=== PATIENT | male | born 1975 | race African-American/Black ===

== ENCOUNTER 2017-02-21 18:07 | Emergency (ER) | payer BC ==
[2017-02-21] MEDS ORDERED: Acetaminophen 500 MG TAB ONE (19:50)
--- NOTE | 2017-02-22 00:18 | CON ---
DATE OF CONSULTATION: 02/21/2017 HISTORY OF PRESENT ILLNESS: Mr. 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 He felt dizzy approximately an hour bef ore the incident. He had a sudden onset of pounding headache that lasted for about 2-3 hours. He p resented to the emergency department and his blood pressure was 161/121. He is a known patient of Kj Siddiqui who has worked him up for a left frontal 8 mm AVM. He has had an angiogram with Dr. Kirill wong on 01/09/2017 that showed no aneurysm. Today, at [facility], a CT scan was done that showed no intracranial abnormality. A CTA was done that showed a left frontal AVM with tortuous vessels. A lumbar puncture was done as a concern because of the history of a severe onset pounding headache a nd all 4 tubes of the lumbar puncture showed clear CSF. He is completely neurologically intact on xa and he was transferred to to be evaluated by Neurosurgery. ALLERGIES: No known drug allergies. CURRENT MEDICATIONS: No recorded medications. PAST MEDICAL HISTORY: Includes possible cerebrovascular accident in 2017, diagnosed with AVM in bra in, left frontal in 11/2016. PAST MEDICAL HISTORY: Includes diabetes, hypertension. PAST SURGICAL HISTORY: Includes right knee surgery. PSYCHIATRIC HISTORY: No known psychiatric history. SOCIAL HISTORY: The patient lives with family. Denies any alcohol or illicit drug use. No smoking history. FAMILY HISTORY: No history. REVIEW OF SYSTEMS: A 10-point review of systems was completed. The patient reports dizziness and h eadache, otherwise review of systems grossly negative, unless otherwise stated in the above HPI. PHYSICAL EXAMINATION: VITAL SIGNS: On admission, blood pressure 138/96, pulse 67, respirations 17, temperature 98. Pain 7, O2 sat 96% on room air. GENERAL: The patient is afebrile. Normal pulses. Pulse rate is normal, appears nontoxic. HEENT: Normocephalic, atraumatic. Hearing intact. Moist mucous membranes. Eyes, pupils are equal and reactive to light. Extraocular muscles are intact. Sclerae is white, nonicteric. RESPIRATORY: The patient has bilateral symmetric chest rise. Appears to be no shortness of breath. CARDIOVASCULAR: The patient has normal S1, S2 heart sounds. Regular rate and rhythm. No distal cy anosis or clubbing. EXTREMITIES: Upper extremity normal range of motion and normal strength bilaterally. Lower extremi ty normal range of motion and normal strength bilaterally. NEUROLOGIC: GCS of 15. Cranial nerves II-XII are grossly intact. Speech is clear. He answers my questions appropriately. There are no focal or sensory deficits. No cerebellar deficits and streng th is 5/5 in all 4 extremities. Sensation is equal and intact in all 4 extremities. Speech is sonya r and appropriate. SKIN: Normal findings, warm and dry skin, normal turgor. ASSESSMENT: Mr. Long is a 42-year-old male who presents to [facility] after being transported by EMS from [facility] [place]. He was found to have a left frontal arteriovenou s malformation of 8 mm and concern for severe onset of headaches. PLAN: I reviewed all of the images of the CT, CTA, MRI and lumbar puncture and all were negative fo r subarachnoid hemorrhage. The left frontal AVM was seen on CT scan and CTA. I talked with Dr. Davin Mckoy's PA-C and also Dr. Bailey who are in agreement to send the patient home and have him follow up next week in the office. If there are any further questions, please feel free to contact Neurosurgery.
== END 2017-02-21 20:53 | disposition home or self-care (01) ==
LOC: ERS 18:07
DX: Q28.2 Arteriovenous malformation of cerebral vessels (principal); E11.9 Type 2 diabetes mellitus without complications; I10 Essential (primary) hypertension
CPT/HCPCS: 99284

== ENCOUNTER 2018-02-03 11:35 | Emergency (ER) | payer BC ==
[2018-02-03] MEDS ORDERED: Acetaminophen 500 MG TAB ONE (12:17)
[2018-02-03] MEDS ORDERED: diphenhydrAMINE 50 MG/ML VIAL ONE ×2 (12:17→13:54)
[2018-02-03] MEDS ORDERED: Promethazine HCl 25 MG/ML VIAL ONE ×2 (12:17→13:54)
[2018-02-03] MEDS ORDERED: methylPREDNISolone Sod Succ/PF 125 MG/2 ML VIAL ONE ×2 (16:37→16:43)
[2018-02-03] MEDS ORDERED: Magnesium Sulfate 2 GM/100 ML BAG ONE (16:37)
--- NOTE | 2018-02-03 18:17 | CT ---
CTA HEAD WITH AND WITHOUT CONTRAST: Date: 02/03/18 COMPARISON: 12/18/16. HISTORY: Headache associated with neck pain and stiffness, as well as blurry vision. TECHNIQUE: Multiple contiguous axial images were obtained in a CTA of the head without and with contrast. 3D sag ittal and coronal MIP reformats were performed. FINDINGS: The brain is normal in morphology and attenuation without focal lesions or confluent areas of infarct ion. There is no evidence of hydrocephalus, intracranial hemorrhage, or extra-axial fluid collection. The calvarium and overlying soft tissues are unremarkable. Visualized paranasal sinuses and mastoid a ir cells are well aerated. The bilateral intracranial internal carotid arteries are normal in caliber and branch into normal frances earing anterior and middle cerebral arteries. There is no evidence of focal stenosis, aneurysmal dila tation, or occlusion in the anterior circulation. Both vertebral arteries form a normal appearing basilar artery. The posterior cerebral arteries and c erebellar arteries are patent. There is no evidence of focal stenosis, occlusion, or aneurysmal dilat ation of the posterior circulation. IMPRESSION: 1. No evidence of acute intracranial abnormality. 2. Unremarkable CTA of the head. POS: CHARLSE
== END 2018-02-03 19:51 | disposition home or self-care (01) ==
LOC: ERS 11:35
DX: R51 Headache (principal); Q27.30 Arteriovenous malformation, site unspecified; I11.0 Hypertensive heart disease with heart failure; I50.9 Heart failure, unspecified; E11.9 Type 2 diabetes mellitus without complications; Z79.82 Long term (current) use of aspirin; Z79.899 Other long term (current) drug therapy; Z79.84 Long term (current) use of oral hypoglycemic drugs; Z86.73 Personal history of transient ischemic attack (TIA), and cerebral infarction without residual deficits
CPT/HCPCS: 70496; 93005; 96365; 96366; 96367; 96375; 96376; J1200; J2550; J2930; J3475

== ENCOUNTER 2019-02-01 20:13 | Observation (INO) | payer BC, SELFPAY ==
[2019-02-01 20:49] LABS: #Basophils 0.1 thou/uL (0.0-0.2); #Eosinphils 0.1 thou/uL (0.0-0.7); #Lymphocytes 3.1 thou/uL (1.20-3.40); #Monocytes 0.7 thou/uL (0.11-0.59); #Neutrophils 4.9 thou/uL (1.40-6.50); %Basophils 0.9 % (0.0-1.0); %Eosinophils 1.2 % (0.0-10.0); %Lymphocytes 34.9 % (21.0-51.0); %Monocytes 7.9 % (0.0-10.0); %Neutrophils 55.1 % (42.0-75.0); Hemoglobin 14.6 g/dL (14.0-18.0); Mean Corpuscular HGB CONC 33.2 g/dL (32.0-36.0); Mean Corpuscular Hemoglobin 30.2 pg (27.0-31.0); Mean Platelet Volume 8.6 fL (7.4-10.4); Platelet Count 201 thou/uL (130-400); Red Blood Cell (RBC) Count 4.83 mill/uL (4.70-6.10)
[2019-02-01 21:13] LABS: ALT (SGPT) 25 U/L (8-55); AST (SGOT) 18 U/L (5-34); Alkaline Phosphatase 101 U/L (40-150); Anion Gap 12 mmol/L (10-20); BUN (Urea Nitrogen) 9 mg/dL (8.9-20.6); Bilirubin, Total 0.8 mg/dL (0.2-1.2); CK (CPK) 331 U/L (30-200); Calc. Creatinine Clearance 0 mL/min (70-130); Calcium 8.9 mg/dL (7.8-10.44); Carbon Dioxide 24 mmol/L (22-29); Chloride 107 mmol/L (98-107); Estimated GFR-MDRD 85; Globulin 2.6 g/dL (2.4-3.5); Glucose 95 mg/dL (70-105); Protein, Total 6.6 g/dL (6.0-8.3); Sodium 139 mmol/L (136-145)
[2019-02-01] MEDS ORDERED: Lorazepam 2 MG/ML VIAL SLOW IVP PRN (21:47)
[2019-02-01] MEDS ORDERED: Ondansetron PF 4 MG/2 ML Vial IVP PRN (21:48)
[2019-02-01] MEDS ORDERED: Ondansetron ODT 4 MG TAB PO PRN (21:48)
[2019-02-01] MEDS ORDERED: Acetaminophen 650 MG Suppository PR PRN (21:48)
[2019-02-01] MEDS ORDERED: Acetaminophen 325 MG TAB PO PRN (21:48)
[2019-02-01 22:36] LABS: Bilirubin Negative (Negative); Blood, Urine Negative (Negative); Clarity Clear (Clear); Glucose, Urine (Dipstick) Normal (Negative); Leukocyte Negative Leu/uL (Negative); Nitrite Negative (Negative); Protein, Urine (Dipstick) Negative (Neg-Trace); Urobilinogen Normal mg/dL (Less than 2)
[2019-02-01 22:44] LABS: Amphetamine Not Detected (NotDetected); Cocaine Metabolite Screen Not Detected (NotDetected); Medtox Reader # READER 4; Methamphetamine Not Detected (NotDetected); Opiate Screen Not Detected (NotDetected); Phencyclidine (PCP) Not Detected (NotDetected); THC/Cannabinoid Screen Not Detected (NotDetected)
[2019-02-01 22:45] LABS: Barbiturates Screen Not Detected (NotDetected); Benzodiazepine Screen Detected (NotDetected); Medtox Control Line Valid? VALID (VALID); Methadone Not Detected (NotDetected); Oxycodone Screen Not Detected (NotDetected); Tricyclic Screen Not Detected (NotDetected)
[2019-02-01] MEDS ORDERED: Sodium Chloride 0.9% 1,000 ML IV SCH (22:58)
[2019-02-01 23:35] VITALS: BP 198/115; TEMP 97.7; BMI 26.9
[2019-02-02] MEDS ORDERED: diphenhydrAMINE 50 MG/ML VIAL ONE (00:38)
[2019-02-02] MEDS ORDERED: diphenhydrAMINE 50 MG/ML VIAL IVP SCH (01:00)
[2019-02-02] MEDS ORDERED: hydrALAZINE 20 MG/ML VIAL SLOW IVP PRN (02:41)
[2019-02-02] MEDS ORDERED: Enoxaparin Sodium 40 MG/0.4 ML SYRINGE SC SCH (09:00)
== END 2019-02-02 03:36 | disposition left against medical advice (07) ==
LOC: ERS 20:13 → 2SE 22:47
PROVIDERS: ADMIT Hospitalist; ATTEND Hospitalist
DX: R56.9 Unspecified convulsions (principal); I10 Essential (primary) hypertension; E11.9 Type 2 diabetes mellitus without complications; Z79.84 Long term (current) use of oral hypoglycemic drugs; Z79.899 Other long term (current) drug therapy
CPT/HCPCS: 36415; 80053; 80306; 81003; 82550; 84146; 85025; G0378; J1200

== ENCOUNTER 2019-02-02 06:18 | Emergency (ER) | payer SELFPAY ==
[2019-02-02 06:46] LABS: #Basophils 0.1 thou/uL (0.0-0.2); #Eosinphils 0.1 thou/uL (0.0-0.7); #Lymphocytes 1.8 thou/uL (1.20-3.40); #Monocytes 0.5 thou/uL (0.11-0.59); #Neutrophils 9.4 thou/uL (1.40-6.50); %Basophils 0.8 % (0.0-1.0); %Lymphocytes 14.9 % (21.0-51.0); %Monocytes 4.5 % (0.0-10.0); %Neutrophils 78.8 % (42.0-75.0); Hemoglobin 15.4 g/dL (14.0-18.0); Mean Corpuscular HGB CONC 33.2 g/dL (32.0-36.0); Mean Corpuscular Hemoglobin 29.7 pg (27.0-31.0); Mean Corpuscular Volume 89.5 fL (78.0-98.0); Mean Platelet Volume 8.6 fL (7.4-10.4); Platelet Count 203 thou/uL (130-400); RBC Distribution Width 13.9 % (11.5-14.5); White Blood Cell (WBC) Count 11.9 thou/uL (4.8-10.8)
[2019-02-02 07:09] LABS: ALT (SGPT) 27 U/L (8-55); AST (SGOT) 21 U/L (5-34); Albumin 4.4 g/dL (3.5-5.0); Alcohol Less than 10 mg/dL (Less than 10); Alkaline Phosphatase 107 U/L (40-150); Anion Gap 12 mmol/L (10-20); BUN (Urea Nitrogen) 9 mg/dL (8.9-20.6); Bilirubin, Total 1.1 mg/dL (0.2-1.2); Calc. Creatinine Clearance 0 mL/min (70-130); Calcium 9.8 mg/dL (7.8-10.44); Carbon Dioxide 27 mmol/L (22-29); Chloride 104 mmol/L (98-107); Estimated GFR-MDRD 78; Globulin 2.9 g/dL (2.4-3.5); Glucose 104 mg/dL (70-105); Potassium 3.7 mmol/L (3.5-5.1); Protein, Total 7.3 g/dL (6.0-8.3); Sodium 139 mmol/L (136-145)
--- NOTE | 2019-02-02 07:50 | CT ---
CT ANGIOGRAM HEAD CT ANGIOGRAM NECK: Date: 02/02/2019 HISTORY: Left-sided aphasia, weakness, history of CVA. TECHNIQUE: Axial CT imaging obtained at 1.25 mm intervals from the vertex through the lung apices with IV contra st using CT angiogram protocol. Coronal and sagittal 3-D reformatted imaging obtained. FINDINGS: The imaged lung apices appear unremarkable. The retroantral fat and parapharyngeal fat appears clear. The parotid and submandibular glands appear grossly unremarkable. Limited assessment of the aerodiges tive tract appears unremarkable. No lymphadenopathy is evident within the neck. The origin of the left subclavian artery, innominate artery, left common carotid artery, right subcla vian artery, right common carotid artery, and bilateral vertebral arteries appears unremarkable. Origin of the left vertebral artery is limited secondary to venous contrast media. Bilateral vertebra l arteries are patent. On the basis of NASCET criteria, there is no hemodynamically significant stenosis involving the commo n carotid artery or the internal carotid artery on either side. The basilar artery and its branches appear patent. There is no saccular aneurysm, high-grade stenosis, or vascular occlusion involving the posterior cir culation. The intracranial arterial structures of the anterior circulation demonstrate no high-grade stenosis, vascular occlusion, or saccular aneurysm. Distal MCA and MARINA branches appear intact. The M1 segment and the MCA bifurcation appear unremarkable bilaterally. There is abnormal hypodensity involving the left frontal lobe with associated mass effect on the mateus cent frontal horn of left lateral ventricle. Configuration on recent CT examination of the head suggests vasogenic edema. There is slight midline shift from left to right in the frontal region. A prior brain MRI performed 03/11/2017 demonstrated arteriovenous malformation of the left frontal lo be. Left frontal AVM was also noted on prior CT angiogram of the head performed 02/03/2018. On this examination, that arteriovenous malformation within the left frontal lobe is again noted but is somew hat more ill-defined when compared to the prior CT examination. Recommend repeat brain MRI. Conventional angiography may be beneficial for full assessment. On this examination, presumed arteriovenous malformation of left frontal lobe is best seen on axial i mage 233 and coronal image 27. It is difficult to measure secondary to its ill-defined nature but is likely in the 5 mm range. IMPRESSION: Findings suggesting significant vasogenic edema with associated mass effect in the left frontal lobe. There is an arteriovenous malformation in this region as detailed above. No acute intracranial hemorrhage is evident. Recommend further assessment via contrast enhanced brain MRI. Results were called to Dr. Kruse at 7:45 AM 02/02/2019 Transcribed Date/Time: 02/02/2019 8:36 AM
--- NOTE | 2019-02-02 08:42 | CT ---
CT OF THE BRAIN WITHOUT CONTRAST: INDICATION: Level I stroke as evaluation for a left-sided aphasia and weakness. COMPARISON: CTA of the brain dated 02/03/2018, MRI of the brain dated 03/11/2017, CTA of the brain dated 12/18/2016 , and noncontrast CT of the brain dated 12/17/2016. FINDINGS: There is an area of subcortical white matter edema in the left frontal lobe surrounding the region of the previously noted arteriovenous malformation. No intracranial hemorrhage or midline shift is dinorah dent. No hydrocephalus is noted. Mastoid air cells and paranasal sinuses are clear. IMPRESSION: 1. New area of vasogenic edema involving the left frontal lobe with maintenance of the cortical ribb on. Overall, the findings are suspicious for edematous changes which could be related to thrombus o f the patient's previous arteriovenous malformation or underlying metastatic disease. Followup CTA o f the head utilizing IV contrast is recommended. MRI of the brain with and without contrast would li stanley be helpful in further evaluation. 2. Findings were called to Dr. Bunch at 6:42 a.m. on 02/02/2019. CODE CR POS: SANDRA
[2019-02-02 09:26] LABS: Bilirubin Negative (Negative); Blood, Urine Negative (Negative); Clarity Clear (Clear); Glucose, Urine (Dipstick) Normal (Negative); Leukocyte Negative Leu/uL (Negative); Nitrite Negative (Negative); Protein, Urine (Dipstick) Negative (Neg-Trace); Urobilinogen Normal mg/dL (Less than 2)
[2019-02-02 09:35] LABS: Medtox Reader # READER 1
[2019-02-02 09:36] LABS: Amphetamine Not Detected (NotDetected); Barbiturates Screen Not Detected (NotDetected); Benzodiazepine Screen Detected (NotDetected); Cocaine Metabolite Screen Not Detected (NotDetected); Medtox Control Line Valid? VALID (VALID); Methadone Not Detected (NotDetected); Methamphetamine Not Detected (NotDetected); Opiate Screen Not Detected (NotDetected); Oxycodone Screen Not Detected (NotDetected); Phencyclidine (PCP) Not Detected (NotDetected); THC/Cannabinoid Screen Not Detected (NotDetected); Tricyclic Screen Not Detected (NotDetected)
--- NOTE | 2019-02-02 10:39 | MRI ---
MRI BRAIN WITH AND WITHOUT CONTRAST: Date: 02/02/19 Reference made to MRI brain dated 03/11/17, as well as head CT dated 02/02/19. FINDINGS: There is abnormal peripherally enhancing intra-axial mass in the left frontal lobe, 1.9 cm transverse x 1.4 cm AP, with surrounding vasogenic edema. This abuts the patient's known vascular malformation, although demonstrates the appearance of pathology separate from vascular anomaly. There is mild susc eptibility artifact at the site of the lesion. Mild rightward midline shift at level of septum pelluc idum measures 3 mm. IMPRESSION: Rim enhancing lesion of the left frontal lobe adjacent to patient's previously diagnosed vascular mal formation. Given the degree of edema, mass effect, and enhancement characteristics, the primary consi deration is interval development of neoplasm. While subacute hematomas can produce rim enhancement, g iven the degree of surrounding vasogenic edema, this does not favor a subacute process, and the patte rn of GRE susceptibility and absence of notable intrinsic hyperintensity does not favor subacute steven jessica. Therefore, recommend neurosurgical consultation for further evaluation in order to exclude intr acranial malignancy. POS: TPC
[2019-02-02] MEDS ORDERED: ISOVUE-370 76%-LOCM 1 ML ONE (10:46)
[2019-02-02] MEDS ORDERED: Gadobenate Dimeglumine 529 MG/1 ML (20ML VIAL) ONE (10:53)
--- NOTE | 2019-02-02 11:30 | PDOC.EVN ---
Event Note - Event Note Event Note: Patient left the ED AMA after MRI done and was not in the ED when this provider went to admit him. Discussed MRI results with Dr. Kruse, ED physician, who is having ED charge nurse try and track patient down to bring back to the ED. Dr. Khan made aware of situation.
--- NOTE | 2019-02-02 22:18 | CON ---
DATE OF CONSULTATION: HISTORY OF PRESENT ILLNESS: The patient is a 44-year-old male with a known history of left frontal AVM, seizure disorder, hypertension, diabetes, who has had several ER visits over the past several days for increased seizures, left-sided weakness, and mental status changes. His girlfriend is at the bedside and she assists with the history. She reports that the patient does have a history of left frontal AVM, diagnosed in 2017. This was evaluated by Neurosurgery, Dr. Jin at that time, and treated with radiosurgery by Dr. Rodriguez. The patient reports they have not followed up in several years secondary to financial constraints and insurance issues. They report that he was doing well until spring when he developed increased seizure events and additional above symptoms. He was seen in the ER both at [facility] and [facility] several times since spring 2018. In August of 2018, they report he had an MRI of the brain and was told he had new abnormalities, but he was unfortunately not able to follow up for this secondary to insurance and self-pay issues. Over the last weeks, his girlfriend reports he has had several episodes of seizure activity daily. He was brought to the ER for these events and ultimately evaluated with an MRI of the brain with and without contrast. On this new scan , the patient was noted to have an increased hyperdensity in the left frontal region with surrounding vasogenic edema. I compared this to an MRI in August 2018 from [facility] [place]. This appears to be significantly increased in size since the scan. Earlier today, he did leave A following this event, but the ER managed to get a hold of him and encouraged him to come back. He has been treated with 10 mg of Decadron in the emergency department and reportedly takes Keppra daily at home. However, I am unsure of compliance of this. His current complaints are left- sided weakness, some blurry vision in the left eye, increased headaches, and increased seizure events. PAST MEDICAL HISTORY: Notable for hypertension, diabetes, left frontal AVM, and seizure disorder. PAST SURGICAL HISTORY: Radiosurgery for left frontal AVM and right knee surgery. SOCIAL HISTORY: The patient lives at home with his family. He has a 1-1/2-year -old daughter. He does not smoke, drink or use any drugs. ALLERGIES: HE HAS NO KNOWN DRUG ALLERGIES. CURRENT MEDICATIONS: 1. Lisinopril-hydrochlorothiazide 20 mg-25 mg tab one tab p.o. daily. 2. Metformin 1000 mg one tab p.o. daily. 3. Metoprolol 50 mg tab one tab p.o. daily. 4. Keppra 1000 mg tab one tab p.o. b.i.d. REVIEW OF SYSTEMS: Per HPI. PHYSICAL EXAMINATION: GENERAL: The patient is awake, alert, in no acute distress. HEENT: Head, normocephalic and atraumatic. Eyes, pupils are equal and reactive to light. Extraocular movements are intact. Oral mucosa is pink, intact, and moist. He has normal voice. NECK: Nontender to palpation. Free active range of motion. No meningismus or nuchal rigidity. RESPIRATORY: Symmetric chest expansion. No evidence of dyspnea. CARDIOVASCULAR: Regular rate and rhythm. MUSCULOSKELETAL: He has free active range of motion in the right upper and lower extremities, no focal motor weakness or reflex asymmetry is appreciated. He is significantly weak on the left side during my exam; however, he is noted to be intermittently spontaneously moving the left side when I am not in the room. NEUROLOGIC: Oriented x3, left-sided weakness. ASSESSMENT AND PLAN: This is a 44-year-old male with a known left frontal arteriovenous malformation, treated in the past by Radiosurgery, who has an MRI with new hyperdensity in the left frontal region near the site of the left arteriovenous malformation with surrounding vasogenic edema. He has also had increased seizure events recently. The hospitalist will plan to admit and we will consult on the case. I have recommended continuing the patient's Decadron 4 mg q.6 h. We will also plan to treat him with an H2 maria dolores for GI protection. The patient also should continue on his Keppra dosing and may require Neurology assistance with management of seizures if they are persistent. I will discuss the case with Dr. Garcia, who will also see the patient. Job ID: [id number]
--- NOTE | 2019-02-07 15:35 | EKG ---
Test Reason : Blood Pressure : / mmHG Vent. Rate : 062 BPM Atrial Rate : 062 BPM P-R Int : 164 ms QRS Dur : 070 ms QT Int : 406 ms P-R-T Axes : 022 002 008 degrees QTc Int : 412 ms Normal sinus rhythm Normal ECG Confirmed by KAY MENDEZ ([id number]), web editor KALIN RIDDLE ([id number]) on 02/07/2019 3:35:32 PM Referred By: VANESSA Confirmed By:KAY MENDEZ
== END 2019-02-02 09:14 | disposition short-term general hospital (02) ==
LOC: ERS 06:18
DX: G93.6 Cerebral edema (principal); I10 Essential (primary) hypertension; Z86.73 Personal history of transient ischemic attack (TIA), and cerebral infarction without residual deficits; E11.9 Type 2 diabetes mellitus without complications; Z79.899 Other long term (current) drug therapy; Z79.84 Long term (current) use of oral hypoglycemic drugs
CPT/HCPCS: 36415; 70450; 70496; 70498; 70553; 80306; 80307; 81003; 93005; 94760; A9577; Q9966

== ENCOUNTER 2019-02-02 13:06 | Observation (INO) | payer SELFPAY ==
[2019-02-02] MEDS ORDERED: Dexamethasone 10 MG/ML VIAL ONE (16:01)
[2019-02-02] MEDS ORDERED: HYDROcodone/Acetaminophen 5/325 mg Tablet PO PRN ×2 (16:29)
[2019-02-02] MEDS ORDERED: Senokot S 8.6-50 MG TAB PO PRN (16:29)
[2019-02-02] MEDS ORDERED: Acetaminophen 325 MG TAB PO PRN (16:29)
[2019-02-02 17:28] VITALS: BMI 26.5
[2019-02-02] MEDS ORDERED: Dextrose 5% in Water 1,000 ML IV PRN (17:41)
[2019-02-02] MEDS ORDERED: Dextrose 50% Abboject 50 ML SYRINGE SLOW IVP PRN (17:41)
[2019-02-02] MEDS ORDERED: HumaLOG 300 UNITS/3 ML VIAL SC PRN (17:41)
[2019-02-02] MEDS ORDERED: hydrALAZINE 20 MG/ML VIAL SLOW IVP PRN (18:25)
[2019-02-02] MEDS: Nicotine 21 MG PATCH TD SCH (18:26)
--- NOTE | 2019-02-02 18:34 | PDOC.EVN ---
Event Note - Event Note Event Note: Discussed with Donna Pardo. Patient has a hx of brain AVM treated with sterotactic radiosurgery with Dr. Jin and Dr. Rodriguez. Has hx of seizure disorder. Presented to ED yesterday with multiple seizures. Left AMA. Came back with left arm weakness and visual disturbance in left eye. Reports he has had these in the past and they resolved. He had CT on that visit with possible mass in left frontal lobe. Had MRI confirmation of likely mass, but patient had eloped from the ED. He was brought back to the ED and seen by Neurosurg. He was convinced to stay. Exam reveals LUE weakness, but patient is not completely compliant with exam. As I attempted to raise the left arm, he actually did almost all of the lifting. When asked to lower the arm slowly, he dropped it. Regardless, he does have what appears to be a subacute left frontal lobe mass with edema. On Decadron. Neurosurg consult. BP running fairly high. Will give a PRN, but not too aggressive.
[2019-02-02] MEDS: Lorazepam 2 MG/ML VIAL SLOW IVP PRN (21:30)
[2019-02-02] MEDS: Dexamethasone 4 mg/ml Vial ONE ×2 (21:44→22:09)
[2019-02-02] MEDS ORDERED: levETIRAcetam In NaCl (Iso-Os) 1,000 MG in Premix Bag 1 BAG IVPB SCH (22:00)
[2019-02-02] MEDS ORDERED: Dexamethasone 4 mg/ml Vial SLOW IVP SCH (22:00)
[2019-02-02] MEDS: Famotidine 20 MG TAB PO SCH (22:06)
[2019-02-02] MEDS: levETIRAcetam 500 MG TAB PO SCH (22:07)
--- NOTE | 2019-02-02 23:22 | HP ---
PRIMARY CARE PHYSICIAN: Thais. CHIEF COMPLAINT: Increased seizure activity, headache, left arm weakness. HISTORY OF PRESENT ILLNESS: Mr. Long is a 44-year-old male, who has been into the emergency room 3 times in the last 36 hours, was seen on 02/01/2019 with increased seizure activity, was worked up, given medication, and before he could be admitted to the hospital, he left AMA. He returned this morning with complaints of left arm weakness. Jayla says that she has noticed that he has had multiple seizures in the last 24 hours. He was again admitted to the hospital, but left AMA before the Hospitalist Service could see him. He did have an MRI and a CTA of the brain and neck done before he left the second time, and on the MRI, he was concerned for a rim-enhancing lesion to the left frontal lobe adjacent to the patient's previously diagnosed AVM. Given degree of edema, mass effect, and enhancement characteristics, the primary consideration is interval development of a neoplasm. Neurosurgical consult for further evaluation was recommended. ER was able to track down the patient and instruct the patient to come back into the emergency room for admission and Neurosurgery consult, which the patient did and he is now being admitted for Neurosurgery consultation and evaluation. The CTA of neck and brain impression is finding suggestive of significant vasogenic edema associated mass-effect in the left frontal lobe, AVM in this region as detailed above. No acute intracranial hemorrhage is evident. The patient does report that he has been evaluated in the past by Dr. Jin in 2017, where he had a stereotactic radiosurgery with 24 Gy applied to the right frontal AVM, which was done in conjunction with Dr. Rodriguez. He reports that he has not been able to follow up since that time as that he has no insurance and no money to pay for followup. Jayla did mention during the history that the patient had been seen at [facility] in [place] and was noted to have a mass at that time, but she was not sure if it is the same one that we were talking about today. The patient reports that headaches, left-sided weakness which appears to be somewhat intermittent, and blurry vision has been getting worse since October. Girlfriend notes that the increased seizure activity in the last 36 to 48 hours is new. The patient does have a known seizure disorder and is on Keppra 1000 mg p.o. b.i.d. The patient is agreeable to admission and willing to see Neurosurgery for new findings found on the MRI. REVIEW OF SYSTEMS: The patient reports a headache. Reports left-sided weakness. Denies fever or chills. All other systems are reviewed and are negative unless mentioned in HPI. PAST MEDICAL HISTORY: Had a CVA in 2017, diagnosed with an AVM in the brain, history of diabetes, hypertension, and seizure disorder. PAST SURGICAL HISTORY: Right knee AVM surgery. PSYCHIATRIC HISTORY: None. SOCIAL HISTORY: Lives with his family. No alcohol or drugs. No smoking. The patient does smoke cigarettes. KNOWN ALLERGIES: None. HOME MEDICATIONS: Per ER record, these will need to be further reconciled once on the floor; 1. Lisinopril-hydrochlorothiazide 20-25 mg one tablet once a day. 2. Metformin 1000 mg p.o. once a day. 3. Metoprolol 50 mg p.o. once a day. 4. Keppra 1000 mg p.o. b.i.d. PHYSICAL EXAMINATION: VITAL SIGNS: Blood pressure 186/107, pulse 77, respirations 17, temperature is 98.5, pO2 sats are 98% on room air. CONSTITUTIONAL: The patient appears nontoxic. He is alert and oriented to person, place, and time. Appears in no apparent distress. HEENT: Head is atraumatic and normocephalic. Eyes; eyelids are normal to inspection. Pupils are equally round and reactive to light. ENT; mucous membranes are moist. Mouth exam is normal. NECK: Normal range of motion. Trachea is midline. RESPIRATORY AND CHEST: Chest expansion is equal. Breath sounds are clear. CARDIOVASCULAR: Regular heart rate and rhythm. Heart sounds are normal. ABDOMEN: Nontender. Bowel sounds are heard. BACK: Normal inspection, normal range of motion. EXTREMITIES: Upper extremity; normal strength on the right, decreased strength on the left. Sensation is intact bilaterally. NEURO: The patient is oriented to person, place, and time. Speech is normal. He does protect his face and left arm is dropped, able to slowly drop his left upper extremity, pushes down with his left lower extremity when raising his right lower extremity. The patient is able to show teeth without difficulty. Cranial nerves 2 through 12 are intact. SKIN: Warm, dry, normal in color. PSYCH: The patient is oriented to person, place, and time. Has a normal affect. LABORATORY DATA: White blood cell count 11.9. Chemistry; C-reactive protein 4.3, CK 331, prolactin 19.6. Urine, negative. Toxicology, noted for benzodiazepines. Tylenol was less than 6. ASSESSMENT AND PLAN: 1. Left-sided weakness, enhancing lesion to the left frontal lobe adjacent to the patient's previously diagnosed AVM. We will consult Neurosurgery. Decadron 10 mg was given in the ER. Neurosurgery consulted via phone initially. Agreeable to Decadron 4 mg q.6 hours with an H2 antagonist. The patient will be restarted on Keppra. PT/OT evaluation has been ordered. 2. History of hypertension. We will trend. Restart home medications. 3. History of diabetes. Add sliding scale insulin for coverage. 4. Seizure disorder. Continue home medications. See #1. 5. Deep venous thrombosis and gastrointestinal prophylaxis have been started. 6. Case discussed with Dr. Khan, who agrees. 7. Hospital course is dependent on clinical findings. Job ID: [id number]
[2019-02-03] MEDS: Dexamethasone 4 MG TAB PO SCH ×4 (00:02→19:23)
[2019-02-03 05:18] LABS: #Lymphocytes 1.3 thou/uL (1.20-3.40); #Monocytes 0.3 thou/uL (0.11-0.59); #Neutrophils 9.6 thou/uL (1.40-6.50); %Basophils 0.3 % (0.0-1.0); %Eosinophils 0.1 % (0.0-10.0); %Lymphocytes 11.2 % (21.0-51.0); %Monocytes 2.4 % (0.0-10.0); Mean Corpuscular HGB CONC 32.3 g/dL (32.0-36.0); Mean Corpuscular Hemoglobin 29.1 pg (27.0-31.0); Mean Corpuscular Volume 90.1 fL (78.0-98.0); Mean Platelet Volume 8.8 fL (7.4-10.4); Platelet Count 232 thou/uL (130-400); RBC Distribution Width 13.9 % (11.5-14.5); White Blood Cell (WBC) Count 11.1 thou/uL (4.8-10.8)
[2019-02-03 05:37] LABS: ALT (SGPT) 25 U/L (8-55); AST (SGOT) 18 U/L (5-34); Albumin 4.6 g/dL (3.5-5.0); Alkaline Phosphatase 114 U/L (40-150); Anion Gap 16 mmol/L (10-20); BUN (Urea Nitrogen) 15 mg/dL (8.9-20.6); Bilirubin, Total 0.4 mg/dL (0.2-1.2); Calc. Creatinine Clearance 78 mL/min (70-130); Calcium 10.7 mg/dL (7.8-10.44); Carbon Dioxide 21 mmol/L (22-29); Chloride 106 mmol/L (98-107); Estimated GFR-MDRD 76; Globulin 3.4 g/dL (2.4-3.5); Glucose 145 mg/dL (70-105); Potassium 4.6 mmol/L (3.5-5.1); Sodium 138 mmol/L (136-145)
[2019-02-03] MEDS: Famotidine 20 MG TAB PO SCH (08:59)
[2019-02-03] MEDS: levETIRAcetam 500 MG TAB PO SCH (08:59)
[2019-02-03] MEDS: Lorazepam 2 MG/ML VIAL SLOW IVP PRN (10:04)
[2019-02-03 16:15] VITALS: BP 141/97; TEMP 98
--- NOTE | 2019-02-03 16:52 | PRG ---
DATE OF SERVICE: 02/03/2019 SUBJECTIVE: The patient was seen and examined. Agree with Citlali Mcgill's evaluation, 02/02/2019. The patient is a 44-year-old male with a past medical history of an arteriovenous malformation treated with radiosurgery [place] [address] Jin and [address] Rodriguez. He has been relatively poorly compliant with followup, but apparently has been having worsening seizures over the past year. At the time of his presentation, he was admitted both for seizure as well as for complaints of left-sided weakness. He has had multiple dismissals, AMA. The patient had new imaging including CT and MRI scan, which do not suggest new hemorrhage, but do suggest enhancement in the region of the previously known left frontal arteriovenous malformation. There seems to be some progression of the enhancement since August of this year. IMPRESSION AND PLAN: From an imaging perspective, the nature of this enhancement is unclear. It is early for a radiation related neoplasm. However, direct radiation effect causing enhancement should not progress since August. There are no definitive indications for surgery at this time. I will make arrangements for outpatient followup with Dr. Jin and Dr. Rodriguez, and I expect ongoing surveillance. He may also need cerebral angiography electively. With respect to the seizure disorder, this will also need to be better controlled as he just had another grand mal seizure last night. I will defer to Neurology in this regard. With regard to the left-sided weakness, he is poorly compliant with the exam and is hard to confirm this. This is certainly not related to the left frontal lesion, but maybe postictal in nature. The patient is also complaining of some left eye vision issues, and I will discuss with the primary service regarding the need for Ophthalmology consult as there is no definitive etiology for this to explain on the MRI of the brain. Job ID: [id number]
[2019-02-03] MEDS: Nicotine 21 MG PATCH TD SCH (19:24)
--- NOTE | 2019-02-03 22:17 | CON ---
DATE OF CONSULTATION: 02/03/2019 CONSULTING PHYSICIAN: Hospitalist Services. IMPRESSION: Left frontal mass with peripheral enhancement looking most consistent with a primary brain tumor versus an atypical inflammatory lesion. PLAN: 1. Continue Keppra 1000 mg twice daily. 2. Decadron 4 mg q.6. 3. Neurosurgical opinion. HISTORY OF PRESENT ILLNESS: Mr. Long is a 44-year-old man with no significant past history. His girlfriend notes that she witnessed having generalized tonic-clonic seizure. Reportedly, he had odd sense of something in his mouth, is an odd taste prior to the onset. He awoke in about 3 minutes. He has not had any further events. He had a CT scan of the brain, which showed a left frontal area of edema. His followup MRI of the brain shows an area of enhancement. It is approximately 2 cm with peripheral enhancement and surrounding edema. Neurosurgery has been consulted. PAST MEDICAL HISTORY: Left frontal AVM, hypertension, diabetes. 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 The patient reportedly has seen Dr. Jin in the past. He was lost to follow up due to insurance issues. He had a prior MRI done in August of 2018 at [facility] and reportedly in comparison, the lesion is larger than it had been in the past. The patient had an earlier admission, which he left AMA. He reportedly was being compliant with his Keppra prior to admission. PAST MEDICAL HISTORY: As listed above. ALLERGIES: NONE REPORTED. MEDICATIONS: 1. Lisinopril. 2. Hydrochlorothiazide. 3. Metformin. 4. Metoprolol. 5. Keppra. FAMILY HISTORY: Noncontributory. SOCIAL HISTORY: He does not smoke or drink or use any drugs. REVIEW OF SYSTEMS: A 10 system review of systems is notable for loss of vision in the left eye and left-sided weakness since yesterday. PHYSICAL EXAMINATION: GENERAL: He is a well-nourished, middle-aged man, lying in bed, in no acute distress. VITAL SIGNS: BP 141/97, pulse 114, respirations 22, temperature 98. HEENT: Pupils are equal. Conjunctivae clear. Oropharynx clear. Cranium, normocephalic and atraumatic. NECK: Supple. EXTREMITIES: No cyanosis, clubbing, or edema. NEUROLOGIC: Initially he seemed to be awake and conversant. As the exam went on, he started to have pausing speech and was presumably having word-finding difficulty. No abnormal movements were seen. No facial asymmetry was present. He has subjective loss of vision in the left eye. On motor strength testing, he has good strength on the right side. He would not move the right arm or leg on command. Plantar responses are downgoing on the left and upgoing on the right. Gait was not tested. IMAGING: MRI images were reviewed. SUMMARY: This is a middle-aged man with seizure secondary to a left frontal mass. I will make adjustments in the [facility] as necessary. Job ID: [id number]
--- NOTE | 2019-02-04 02:55 | DIS ---
DATE OF ADMISSION: 02/02/2019 DATE OF DISCHARGE: 02/03/2019 DISCHARGE DIAGNOSES: 1. Seizures. 2. Left frontal brain mass. 3. Left-sided weakness. 4. Left eye visual disturbance. 5. Noncompliance with physical exam. 6. History of left frontal AV malformation, treated with radiosurgery. HISTORY OF PRESENT ILLNESS: This patient is a 44-year-old male with a history of left frontal AVM, treated by Dr. Jin and Dr. Rodriguez with Radiosurgery. He had history of seizure disorder, but presented to the emergency department with seizures. He subsequently left against medical advice. He then came back and had CT of the head performed, which revealed a left frontal lesion. He had an MRI performed, but before results were back, the patient had eloped from the ER again. Given the nature of the left frontal lobe lesion, he was asked to be brought back and was seen by Neurosurgery and was ultimately convinced to stay for further evaluation. The patient was started on IV Decadron. He reported some left-sided weakness and some left eye visual deficits. He was seen in consultation by Dr. Garcia, who felt that the patient did not likely have a cancerous lesion in the brain and felt it was something that we need to be followed over time. He recommended addressing his other acute issues and follow up as an outpatient. The patient did have another seizure when in the hospital, he was given some Ativan, he was maintained on Keppra. He was seen in consultation by Neurology, who recommended increasing the Keppra to a higher dose at 1250 b.i.d. The patient's cooperation with physical exam was questionable. His exam was very inconsistent and when he was evaluated by Ophthalmology, there were similar concerns as the patient was reporting no light sensation at all; however, he had continued to have pupillary reflexes and ultimately as a result, there was no opportunity to intervene. The patient did report that his left arm weakness and left eye issues had been present previously in the past and that they had resolved spontaneously. He was otherwise felt to be stable for discharge to home. PHYSICAL EXAMINATION: VITAL SIGNS: On the day of discharge, temperature was 98, pulse ranged from 96 to 114, respirations 16 to 22, O2 saturation 96% on room air, BP is 141/97. GENERAL: The patient was awake and alert. He was in no distress. HEENT: The patient was not cooperative with opening his left eye, but his pupils are reactive. He had no OP lesions. HEART: Regular rate and rhythm without murmurs, gallops, or rubs. LUNGS: Clear bilaterally. ABDOMEN: Soft, nontender, and nondistended. EXTREMITIES: No cyanosis, clubbing, or edema. NEUROLOGICAL: Again, the patient's pupils were reactive. He appeared to have ample strength, to be able to fully elevate his left upper extremity, but when asked to hold it or led it down slowly, he would let it fall calling in a question of compliance with the exam. He had no other true appreciable weaknesses noted. DISPOSITION: The patient was felt to be stable for discharge to home. The patient stated that he wanted to stay in the hospital and get everything done including surgery on his brain and was resistant to the idea that he could be followed up as an outpatient and it appeared that this was primarily related to payment issues. He is however discharged to home for outpatient followup. He is to have activity as tolerated. He will be on a heart healthy diet. He will be on Keppra 1250 mg b.i.d. He will continue with Benicar, HCTZ, metoprolol, aspirin, vitamin D3, atorvastatin. FOLLOWUP: He is to follow up with Dr. Jin in 1 week, Nicolette Plascencia in [place] in 7 days. He can return to the hospital should he have any problems prior to the time of followup. Job ID: [id number]
== END 2019-02-03 19:25 | disposition home or self-care (01) ==
LOC: ERS 13:06 → 2SE 16:32
PROVIDERS: ADMIT Internal Medicine; ATTEND Internal Medicine
DX: G93.89 Other specified disorders of brain (principal); G40.909 Epilepsy, unspecified, not intractable, without status epilepticus; R53.1 Weakness; E11.9 Type 2 diabetes mellitus without complications; I10 Essential (primary) hypertension; F17.210 Nicotine dependence, cigarettes, uncomplicated; Z86.73 Personal history of transient ischemic attack (TIA), and cerebral infarction without residual deficits; Z79.84 Long term (current) use of oral hypoglycemic drugs; Z79.899 Other long term (current) drug therapy; Z91.19 Patient's noncompliance with other medical treatment and regimen; Z98.890 Other specified postprocedural states
CPT/HCPCS: 36415; 36416; 80053; 85025; 96365; 96374; 96375; 96376; G0378; J0360; J1100; J1953; J2060; J8540

== ENCOUNTER 2019-02-25 09:21 | Outpatient (CLI) | payer OTHER ==
--- NOTE | 2019-02-25 12:56 | MRI ---
MRI BRAIN WITH AND WITHOUT CONTRAST: INDICATIONS: History of AVM left frontal lobe. Follow up enhancing lesion noted on recent MRI of 02/02/2019. COMPARISON: MRI from 02/02/2019 and 03/11/2017. FINDINGS: There continues to be a ring enhancing mass lesion in the left frontal lobe adjacent to the previousl y described AVM. The size of this ring enhancing lesion has not changed since 02/02/2019, continuing to measure approximately 1.9 cm in width x 1.5 cm in AP dimension in the axial plane. There is persis tent surrounding edema, however the degree of surrounding vasogenic edema has decreased slightly sinc e 02/02/2019. There is no significant change in the single characteristics on the T1 noncontrast imag e. There is no evidence of methemoglobin on P1, which would argue against resolving hematoma. IMPRESSION: Ring enhancing lesion in the left frontal lobe is unchanged in size and appearance. The surrounding v asogenic edema has decreased slightly since the recent examination of 02/02/2019. POS: OFF
== END 2019-02-25 09:22 | disposition home or self-care (01) ==
LOC: SCSMRI 09:21
PROVIDERS: ATTEND Surgery
DX: Q28.2 Arteriovenous malformation of cerebral vessels (principal); G93.9 Disorder of brain, unspecified; G93.6 Cerebral edema
CPT/HCPCS: 70553

== ENCOUNTER 2019-05-04 08:58 | Outpatient (CLI) | payer OTHER, SELFPAY ==
--- NOTE | 2019-05-04 10:59 | MRI ---
BRAIN MRI WITH AND WITHOUT CONTRAST: HISTORY: Follow-up arteriovenous malformation. COMPARISON: 02/25/2019. FINDINGS: Gradient echo sequence: Stable hemosiderin deposition in the left frontal lobe, on the axial GRE sequ ence. There does appear to be a possibly thrombosed feeding vessel versus draining vein. Calvarium: Appropriate T1 marrow signal intensity. Midline brain parenchyma: Unremarkable. Cerebrum:Stable T2 and FLAIR hyperintensity involving the left frontal subcortical white matter sugge sting areas of gliosis. There are no additional areas of abnormal T2 or FLAIR white matter hyperintensity. With the exception of the left frontal lobe, cortical quiroga-white matter differentiati on is preserved. Ventricles: No evidence of hydrocephalus. Sinuses and mastoid air cells: Adequate aeration. Diffusion: Central arterial flow is maintained. Absent restricted diffusion. Postcontrast images:Slightly decreased peripheral enhancement involving the left frontal subcortical white matter, measuring 1.7 cm x 1.5 cm x 1.4 cm. Previous the, this area of enhancement measured 1.9 cm x 1.2 cm x 1.5 cm. IMPRESSION: 1. Redemonstration of a peripherally enhancing focus in the left frontal lobe likely representing pos ttreatment change from a previously treated arteriovenous malformation. Associated white matter hyperintensity. 2. No new lesions. Transcribed Date/Time: 05/04/2019 11:04 AM
[2019-05-04] MEDS ORDERED: Magnevist 469MG/ML 20 ML VIAL ONE (11:23)
== END 2019-05-04 08:59 | disposition home or self-care (01) ==
LOC: TBSIIMAG 08:58
PROVIDERS: ATTEND Surgery
DX: Q28.2 Arteriovenous malformation of cerebral vessels (principal)
CPT/HCPCS: 70553; A9579

== ENCOUNTER 2020-07-05 16:35 | Emergency (ER) | payer OTHER, SELFPAY ==
--- NOTE | 2020-07-05 19:11 | CT ---
Head CT without contrast 07/05/2020: COMPARISON: 02/02/2019 HISTORY: Head injury, trauma, pain TECHNIQUE: Axial CT imaging at 2.5 mm intervals from vertex through skull base without contrast. FINDINGS: The visualized paranasal sinuses and mastoid air cells are well-aerated. There is no displa patricia calvarial fracture. No intracranial hemorrhage, midline shift, mass effect, or ventricular enlargement There is mild encephalomalacia within the left frontal lobe consistent with prior insult IMPRESSION: No intracranial hemorrhage or displaced calvarial fracture. Transcribed Date/Time: 07/05/2020 7:11 PM
[2020-07-05] MEDS ORDERED: levETIRAcetam 500 MG TAB PO SCH (19:15)
[2020-07-05] MEDS ORDERED: Acetaminophen 500 MG TAB ONE (20:00)
== END 2020-07-05 20:00 | disposition home or self-care (01) ==
LOC: ERS 16:35
DX: G40.909 Epilepsy, unspecified, not intractable, without status epilepticus (principal); S62.316A Displaced fracture of base of fifth metacarpal bone, right hand, initial encounter for closed fracture; E11.9 Type 2 diabetes mellitus without complications; I10 Essential (primary) hypertension; F17.210 Nicotine dependence, cigarettes, uncomplicated; Z79.899 Other long term (current) drug therapy; X58.XXXA Exposure to other specified factors, initial encounter
CPT/HCPCS: 36415; 70450; 80177